=== PATIENT | female | born 1950 | race Caucasian/White ===

== ENCOUNTER 2019-09-08 09:11 | Emergency (ER) | payer MEDICARE, OTHER ==
[2019-09-08] MEDS ORDERED: Acyclovir 200 MG Cap PO ONE ×2 (09:12→10:45)
[2019-09-08] MEDS ORDERED: Fluconazole 100 MG Tab PO ONE (10:45)
[2019-09-08] MEDS ORDERED: Ciprofloxacin 500 MG Tab PO ONE (10:45)
--- NOTE | 2019-09-08 10:47 | EDM.PDOC ---
Scribed by Alva Blankenship 09/08/19 0952 for David Romo MD ED HPI GENERAL MEDICAL PROBLEM - General Chief Complaint: Genitourinary Problem Stated Complaint: DIAGNOSED UTI NOT IMPROVING Time Seen by Provider: 09/08/19 09:24 Source of Information: Reports: Patient, RN, RN Notes Reviewed History Limitations: Reports: No Limitations - History of Present Illness INITIAL COMMENTS - FREE TEXT/NARRATIVE: Patient presents to ED by POV stating that she was recently diagnosed with UTI and has not improved with antibiotic. Pt was seen in clinic by Dr. Linton and treated with Bactrim, but did not get better. She returned to clinic and was prescribed Pyridium but it is not helping either. Denies fever, chills, vomiting, abdominal pain, flank pain, or vaginal discharge. Pt also has developed a cold sore/fever blister at the right upper lip, a canker sore in the mouth, and a tender tongue. 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: Other Medication(s) Bladder Pain Score (Numeric/FACES): 10 - Related Data Allergies Allergy/AdvReac Type Severity Reaction Status Date / Time No Known Allergies Allergy Verified 09/08/19 09:28 Home Meds: Home Meds Lutein/Minerals/Vit A,C & E [Ocuvite] 1 tab PO DAILY 09/08/19 [History] Multivitamin [Multi-Day Vitamins] 1 tab PO DAILY 09/08/19 [History] Sertraline HCl 25 mg PO 09/08/19 [History] Zolpidem Tartrate 5 mg PO ASDIRECTED PRN 09/08/19 [History] 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 ED EXAM, RENAL/ - Physical Exam Exam: See Below Exam Limited By: No Limitations General Appearance: Alert, WD/WN, No Apparent Distress Eye Exam: Bilateral Eye: Normal Inspection Nose: Normal Inspection Throat/Mouth: Normal Teeth, Normal Gums, Normal Oropharynx, Normal Voice, No Airway Compromise, Other (Right upper lip with 1.25cm oval patch of vesicles. White coated tongue without lesions. Small apthous ulcer at Rt buccal membrane.) Head: Atraumatic, Normocephalic Neck: Normal Inspection Respiratory/Chest: No Respiratory Distress Cardiovascular: Normal Peripheral Pulses GI/Abdominal: Normal Bowel Sounds, Soft, No Distention, Tender (Mild suprapubic "discomfort"). No: Guarding, Rigid, Rebound (Female) Exam: Deferred Rectal (Female) Exam: Deferred Back Exam: Normal Inspection, Full Range of Motion. No: CVA Tenderness (L), CVA Tenderness (R) Extremities: Normal Inspection Neurological: Alert, Oriented, No Motor/Sensory Deficits Psychiatric: Anxious Skin Exam: Warm, Dry Course - Vital Signs Last Recorded V/S: Last Vital Signs Temp 96.6 F L 09/08/19 09:20 Pulse 83 09/08/19 09:20 Resp 16 09/08/19 09:20 BP 124/53 L 09/08/19 09:20 Pulse Ox 99 09/08/19 09:20 - Orders/Labs/Meds Orders: Active Orders 24 hr Category Date Time Status CULTURE URINE [RM] Stat Lab 09/08/19 10:20 Received Acyclovir [Zovirax] Med 09/08/19 10:45 Once 800 mg PO ONETIME ONE Ciprofloxacin [Ciprofloxacin HCl] Med 09/08/19 10:45 Once 500 mg PO ONETIME ONE Fluconazole [Diflucan] Med 09/08/19 10:45 Once 200 mg PO ONETIME ONE Labs: Laboratory Tests 09/08/19 Range/Units 10:20 Urine Color [place] (YELLOW) Urine Appearance Slightly cloudy (CLEAR) Urine pH 5.0 (5.0-9.0) Ur Specific [place] <= 1.005 (1.005-1.030) Urine Protein 30 H (NEGATIVE) Urine Glucose (UA) 100 H (NEGATIVE) Urine Ketones Negative (NEGATIVE) Urine Occult Blood Trace-intact H (NEGATIVE) Urine Nitrite Positive H (NEGATIVE) Urine Bilirubin Negative (NEGATIVE) Urine Urobilinogen 2.0 H (0.2-1.0) mg/dL Ur Leukocyte Esterase Large H (NEGATIVE) Urine RBC 5-10 H /HPF Urine WBC 30-40 H (0-5/HPF) /HPF Ur Epithelial Cells Rare (NOT SEEN) /HPF Amorphous Sediment Occasional (NOT SEEN) /HPF Urine Bacteria Occasional (0-FEW/HPF) /HPF Urine Mucus Not seen (NOT SEEN) /LPF Departure - Departure Time of Disposition: 10:46 Disposition: Home, Self-Care 01 Condition: Good Clinical Impression: UTI, Urinary tract infectious disease, Herpes labialis, Oral aphthous ulcer - Discharge Information *PRESCRIPTION DRUG MONITORING PROGRAM REVIEWED*: Not Applicable *COPY OF PRESCRIPTION DRUG MONITORING REPORT IN PATIENT ROXANNA: Not Applicable Instructions: Cold Sore, Urinary Tract Infection, Adult, [id number], Canker Sores Forms: ED Department Discharge Additional Instructions: Rx: Cipro 500mg Rx: Diflucan 150mg Rx: Valtrex 1000mg Drink plenty of water. Follow up in clinic in 5 to 7 days for urine recheck. Sepsis Event Note (ED) - Focused Exam Vital Signs: Vital Signs Temp Pulse Resp BP Pulse Ox 09/08/19 09:20 96.6 F L 83 16 124/53 L 99 - My Orders Last 24 Hours: My Active Orders 09/08/19 10:20 CULTURE URINE [RM] Stat 09/08/19 10:45 Acyclovir [Zovirax] 800 mg PO ONETIME ONE Ciprofloxacin [Ciprofloxacin HCl] 500 mg PO ONETIME ONE Fluconazole [Diflucan] 200 mg PO ONETIME ONE - Assessment/Plan Last 24 Hours: My Active Orders 09/08/19 10:20 CULTURE URINE [RM] Stat 09/08/19 10:45 Acyclovir [Zovirax] 800 mg PO ONETIME ONE Ciprofloxacin [Ciprofloxacin HCl] 500 mg PO ONETIME ONE Fluconazole [Diflucan] 200 mg PO ONETIME ONE I have read and agree with the documentation that has been completed regarding this visit. By signing this record, I attest that the documentation was completed in my physical presence and is an accurate record of the encounter.
[2019-09-08] MEDS ORDERED: Ciprofloxacin 500 MG Tab ONE (10:51)
[2019-09-08] MEDS ORDERED: Acyclovir 200 MG Cap ONE (10:51)
== END 2019-09-08 11:10 | disposition home or self-care (01) ==
LOC: DL.ED 09:11
DX: N39.0 Urinary tract infection, site not specified (principal); B00.1 Herpesviral vesicular dermatitis; K12.0 Recurrent oral aphthae; M19.90 Unspecified osteoarthritis, unspecified site
CPT/HCPCS: 81001; 87086; 99283; A9270

== ENCOUNTER 2022-09-10 18:10 | Emergency (ER) | payer MEDICARE, OTHER ==
[2022-09-10] MEDS ORDERED: Acetaminophen/HYDROcodone 325-10 MG Tab PO ONE (18:26)
[2022-09-10] MEDS ORDERED: fentaNYL 100 MCG/2 ML SDV IVPUSH ONE ×2 (18:32→18:57)
[2022-09-10] MEDS ORDERED: Sodium Chloride 0.9% 10 ML Syringe FLUSH PRN (18:32)
[2022-09-10] MEDS ORDERED: Ondansetron 4 MG/2 ML SDV IVPUSH ONE (18:32)
[2022-09-10] MEDS ORDERED: Take Home: Acetaminophen/HYDROcodone 325-5 MG, 5 Tab Pack PO ONE (20:57)
== END 2022-09-10 21:22 | disposition home or self-care (01) ==
LOC: DL.ED 18:10
DX: S52.501A Unspecified fracture of the lower end of right radius, initial encounter for closed fracture (principal); S52.611A Displaced fracture of right ulna styloid process, initial encounter for closed fracture; Z86.16 Personal history of COVID-19; W10.9XXA Fall (on) (from) unspecified stairs and steps, initial encounter; Y93.01 Activity, walking, marching and hiking; Y92.009 Unspecified place in unspecified non-institutional (private) residence as the place of occurrence of the external cause
CPT/HCPCS: 29125; 73110-LT; 96374; 96375; 99282; 99283-25; A9270-GY; J2405; J3010; J3490